=== PATIENT | female | born 1960 | race Caucasian/White ===

== ENCOUNTER 2018-05-19 15:25 | Emergency (ER) | payer BC ==
[~2018-05-19] VITALS: Ht 162.6 cm; Wt 63.5 kg
[2018-05-19 15:33] VITALS: BP 112/67; Ht 162.6 cm; Wt 63.5 kg
== END 2018-05-19 17:05 | disposition home or self-care (01) ==
LOC: ED 15:25
DX: M54.41 Lumbago with sciatica, right side (principal); Z98.890 Other specified postprocedural states
CPT/HCPCS: J1885

== ENCOUNTER 2019-04-04 07:14 | Emergency (ER) | payer BC ==
[~2019-04-04] VITALS: Ht 162.6 cm; Wt 61.2 kg
[2019-04-04 07:23] VITALS: Ht 162.6 cm; Wt 61.2 kg
[2019-04-04 08:52] VITALS: BP 112/70
== END 2019-04-04 08:52 | disposition home or self-care (01) ==
LOC: ED 07:14
DX: M79.601 Pain in right arm (principal)
CPT/HCPCS: J1885